=== PATIENT | female | born 1995 | race Caucasian/White ===

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

== ENCOUNTER → 2017-01-25 | Outpatient (CLI) | payer BC ==
[2017-01-25 12:13] LABS: HEMATOCRIT 43.1 % (37-47); MEAN CELL VOLUME 91.9 fL (80-100); MEAN CORPUSCULAR HEMOGLOBIN 32.4 pg (25-34); MEAN CORPUSCULAR HGB CONC 35.3 g/dl (32-36); MEAN PLATELET VOLUME 9.7 fL (7.4-10.4); PLATELET COUNT 231 K/uL (130-400); RED BLOOD COUNT 4.69 M/uL (4.2-5.4); WHITE BLOOD COUNT 6.22 K/uL (4.8-10.8)
[2017-01-25 12:22] LABS: BLOOD UREA NITROGEN 11 mg/dl (7-18); BUN/CREATININE RATIO 16.2 (10-20); CARBON DIOXIDE 24 mmol/L (21-32); CHLORIDE 108 mmol/L (98-107); CREATININE 0.68 mg/dl (0.60-1.20); GLUCOSE 91 mg/dl (70-99); POTASSIUM 3.9 mmol/L (3.5-5.1); SODIUM 140 mmol/L (136-145)
== END | disposition home or self-care (01) ==
LOC: C.LAB1850 10:31
PROVIDERS: ATTEND Physician Assistant
DX: R00.0 Tachycardia, unspecified (principal); R42 Dizziness and giddiness

== ENCOUNTER 2023-08-04 14:58 | Inpatient (IN) ==
[2023-08-04] MEDS ORDERED: OXYTOCIN 30 UNITS/NSS 30 UNITS/500 ML BAG IV PRN (21:14)
[2023-08-04] MEDS ORDERED: LIDOCAINE 1% LOCAL 20 ML VIAL INFIL PRN (21:14)
[2023-08-04 21:57] LABS: Hematocrit (blood only) 39.6 % (37.0-47.0); Hemoglobin 13.9 g/dl (12.0-16.0); Mean Corpuscular Hemoglobin 32.8 pg (25.0-34.0); Mean Corpuscular Hgb Conc 35.1 g/dL (32.0-36.0); Mean Corpuscular Volume 93.4 fL (80.0-100.0); Mean Platelet Volume 10.7 fL (9.4-12.4); Platelet Count 175 K/uL (130-400); RDW Coefficient of Variation 13.1 % (11.5-14.5); RDW Standard Deviation 44.4 fL (36.4-46.3); Red Blood Count 4.24 M/uL (4.20-5.40); White Blood Count 10.67 K/ul (4.8-10.8)
[2023-08-04] MEDS: OXYTOCIN 30 UNITS/NSS 30 UNITS/500 ML BAG IV PRN (22:00)
[2023-08-04] MEDS: LACTATED RINGER'S 1,000 ML IV PRN (22:00)
--- NOTE | 2023-08-04 22:00 | History & Physical Report ---
Date of Service August 04, 2023 Assessment & Plan (1) Supervision of normal first : Plan: Admit to L&D. EFM/toco. Labs. Start pitocin, ok for epidural when she desires. Admission and Anticipated Discharge Date Admission Date: August 04, 2023 History of Present Illness Chief Complaint: IOL Primary Care Provider: Arun Cain, DO 28yo @ 40 5/7, IOL for postdates. Allergies Allergy/AdvReac Type Severity Reaction Status Date / Time No Known Allergies Allergy Unknown Verified 08/04/23 20:28 Home Medications Medication Instructions Recorded Confirmed Type vhg-xolx-tsffg acid 1 dose PO DAILY 12/14/22 08/04/23 History breast pump #1 ea 04/09/23 08/03/23 Rx ondansetron 4 mg disintegrating 4 mg PO Q6H PRN nausea and 06/02/23 08/04/23 Rx tablet vomiting #30 tabs Patient History Medical History Varicella vaccine Migraine Surgical History S/P tonsillectomy S/P wisdom tooth extraction Family History (Updated 12/14/22 @ 15:09 by Nayeli Paul, EBONI) Grandmother (Paternal) Diabetes Mother Endometriosis Denies family history of Ovarian cancer Prostate cancer Breast cancer Colorectal cancer Social History Smoking Status: Never smoker Second Hand Exposure: No; Do You Dip or Chew Tobacco: No; Hx Alcohol Use: No Hx Substance Use: No Preferred Language: Croatian Communication Ability: Effective Supervisor Laboratory Animal Facility Required: No Beliefs That Will Affect Care: None marital status: marital status details: Andrea Miguel ( [phone] Current Living Situation: Spouse Current Living Situation Comment: lives with and cats, litter changing current occupational status: employed current occupation: [employer] Other Information That Helps Us Care for You: No Feels Safe at Home: Yes Safety Concerns: Feels Safe At This Time Assistive Devices: Glasses Review of Systems All systems reviewed & are unremarkable except as noted in HPI & below Physical Exam Physical Exam: FHT Cat 1 [place] no reg ctx SVE 3-4/90/-1 Constitutional: WD/WN, vitals as above Respiratory: normal respiratory effort, lungs clear to auscultation no respiratory distress Cardiovascular: Rate/Rhythm: regular rate and regular rhythm Gastrointestinal (Abdomen): Inspection/Auscultation: abdomen normal to inspection Percussion/Palpation: abdomen soft; abdomen nontender Gravid. No s/s chorio or abruption. Skin: no rashes, warm and dry Psychiatric: A+Ox3, euthymic affect Results & Data Vital Signs (Past 12 Hours) Vital Signs Temp Pulse Resp BP 08/04/23 20:30 37.1 C 82 18 131/84 08/04/23 20:20 18 08/04/23 20:20 37.1 C 18 08/04/23 20:19 82 131/84 Coding Level of Care Code None Diagnoses Supervision of normal first Z34.00
[2023-08-05] MEDS ORDERED: fentaNYL citrate PF 100 MCG/2 ML VIAL ONE (04:20)
[2023-08-05] MEDS: LIDOCAINE 2%/EPINEPHRINE 1:200,000 20 ML PF ONE (05:00)
[2023-08-05] MEDS: SODIUM CHLORIDE 0.9% PF INJ 10 ML VIAL ONE (05:00)
[2023-08-05] MEDS: BUPIVACAINE 0.25% PF 30 ML VIAL ONE (05:00)
[2023-08-05] MEDS: fentANYL 2 MCG/ML BUPIVacaine 0.125%-NSS 100ML BAG ONE (05:01)
[2023-08-05] MEDS ORDERED: NALOXONE HCL 0.4 MG/1 ML VIAL/CARP IV PRN (05:07)
[2023-08-05] MEDS ORDERED: NALOXONE HCL 1 MG in SODIUM CHLORIDE 0.9% 1,000 ML IV PRN (05:07)
[2023-08-05] MEDS ORDERED: ROPIVACAINE 0.5% PF 5 MG/ML 20 ML VIAL EPI PRN (05:07)
[2023-08-05] MEDS ORDERED: LIDOCAINE 2%/EPINEPHRINE 1:200,000 20 ML PF EPI STA (05:07)
[2023-08-05] MEDS ORDERED: NALBUPHINE HCL 5 MG in SYRINGE 0 ML IV PRN (05:07)
[2023-08-05] MEDS ORDERED: SODIUM CHLORIDE 0.9% PF INJ 10 ML VIAL EPI STA (05:07)
[2023-08-05] MEDS ORDERED: BUPIVACAINE 0.25% PF 30 ML VIAL EPI STA (05:07)
[2023-08-05] MEDS ORDERED: SODIUM CHLORIDE 0.9% PF INJ 10 ML VIAL EPI PRN (05:07)
[2023-08-05] MEDS ORDERED: ONDANSETRON INJ 2 MG/ML 2 ML VIAL IV PRN (05:07)
[2023-08-05] MEDS ORDERED: fentaNYL citrate PF 100 MCG/2 ML VIAL EPI PRN (05:07)
[2023-08-05] MEDS ORDERED: ePHEDrine sulfate 50 MG/ML AMP IV PRN (05:07)
[2023-08-05] MEDS ORDERED: PROMETHAZINE HCL 6.25 MG in SODIUM CHLORIDE 0.9% 50 ML IV PRN (05:07)
[2023-08-05] MEDS ORDERED: BUPIVACAINE 0.25% PF 30 ML VIAL EPI PRN (05:07)
[2023-08-05] MEDS ORDERED: diphenhydrAMINE 50 MG/ML VIAL IV PRN (05:07)
[2023-08-05] MEDS ORDERED: fentaNYL citrate PF 100 MCG/2 ML VIAL EPI STA (05:07)
[2023-08-05] MEDS ORDERED: LIDOCAINE 2% MPF LOCAL 5 ML VIAL EPI PRN (05:07)
--- NOTE | 2023-08-05 05:07 | Anesthesiology Consultation ---
Date of Service August 05, 2023 Assessment & Plan Chart Review Chart Review: Patient NOT seen in Pre Admission Testing and Acceptable Risk for Labor Epidural Consults Requested none ASA ASA2 Proposed Anesthesia Anesthesia Type: Labor Epidural Risk / Benefits Reviewed With: PT / POA / Parent / Guardian, Accepts Plan and Informed Consent Obtained History Height/Weight Height: 5 ft 7 in Weight: 97.976 kg Allergies Allergy/AdvReac Type Severity Reaction Status Date / Time No Known Allergies Allergy Unknown Verified 08/04/23 20:28 Medications Home Medications Medication Instructions Recorded Confirmed Last Taken rmj-arld-lfbom acid 1 dose PO DAILY 12/14/22 08/04/23 08/04/23 12:00 breast pump #1 ea 04/09/23 08/03/23 Unknown ondansetron 4 mg disintegrating 4 mg PO Q6H PRN nausea and 06/02/23 08/04/23 08/04/23 16:00 tablet vomiting #30 tabs Active Medications Generic Name Dose Route Start Last Admin Trade Name Freq PRN Reason Stop Dose Admin Oxytocin 30 units in 500 mls @ 11 mls/hr 08/04/23 21:14 08/05/23 02:29 Pitocin 30 Units/Nss IV 08/06/23 21:13 0.78 units/hr .Q24H PRN 13 mls/hr Labor Induction/Augmentation Titration Protocol 0.66 UNITS/HR Lactated Ringer's 1,000 mls @ 125 mls/hr 08/04/23 21:14 08/05/23 04:45 Lr IV 08/06/23 21:13 125 mls/hr .Q8H PRN Infusion L&D Protocol Protocol Past Medical History Medical History Varicella vaccine Migraine Exercise / Class Metabolic Activity II 4-5 Yardwork/Stairs/Walk up hill Past Family History Family History (Updated 12/14/22 @ 15:09 by Nayeli Paul RN) Grandmother (Paternal) Diabetes Mother Endometriosis Denies family history of Ovarian cancer Prostate cancer Breast cancer Colorectal cancer Past Surgical History Surgical History S/P tonsillectomy S/P wisdom tooth extraction Past Anesthesia History No Hx of Anesthesia Complications and No Family Hx of Anesthesia Complications History of PONV No Hx of PONV and No Hx of Motion Sickness Social History Smoking Status: Never smoker Do You Dip or Chew Tobacco: No Hx Alcohol Use: No Hx Substance Use: No substance use type: does not use Physical Exam Vital Signs Last Vital Signs Temp 36.7 C 08/05/23 02:29 Pulse 75 08/05/23 05:05 Resp 18 08/05/23 02:29 BP 108/74 08/05/23 05:05 Pulse Ox 97 08/05/23 05:03 ENMT Mouth: no dentition abnormality Thyromental Distance: > or= 3.5 Finger Breadths Mallampati Class: II Neck normal visual inspection Respiratory normal respiratory effort Auscultation: lungs clear to auscultation bilaterally Cardiovascular Rate/Rhythm: regular rate and regular rhythm Psychiatric Orientation: alert Testing Laboratory Results 08/04/23 21:35
[2023-08-05] MEDS: ePHEDrine sulfate 50 MG/ML AMP ONE (06:39)
--- NOTE | 2023-08-05 08:53 | Labor Progress Brief Note ---
Date of Service August 05, 2023 Subjective feeling pressure Assessment & Plan (1) Encounter for induction of labor: Plan good cx change. arom, clear. anticip 2nd stage soon. Admission and Anticipated Discharge Date Admission Date: August 04, 2023 Physical Exam Constitutional: WD/WN, vitals as above Genitourinary: Manual OB Exam: + cervical dilation (lip), + cervical effacement 100% and + station + 1 Results & Data Vital Signs (Past 12 Hours) Vital Signs Temp Pulse Resp BP Pulse Ox 08/05/23 08:43 80 98 08/05/23 08:38 88 94 08/05/23 08:33 81 96 08/05/23 08:28 72 97 08/05/23 08:25 88 115/71 08/05/23 08:23 77 98 08/05/23 08:18 74 98 08/05/23 08:13 76 98 08/05/23 08:09 81 117/78 08/05/23 08:08 81 98 08/05/23 08:03 77 97 08/05/23 08:00 16 08/05/23 08:00 16 08/05/23 07:58 76 96 08/05/23 07:55 71 121/78 08/05/23 07:53 79 96 08/05/23 07:48 80 97 08/05/23 07:43 74 98 08/05/23 07:41 80 112/90 08/05/23 07:38 76 97 08/05/23 07:33 74 98 08/05/23 07:30 16 08/05/23 07:30 16 08/05/23 07:28 76 97 08/05/23 07:25 77 116/79 08/05/23 07:23 86 98 08/05/23 07:18 73 96 08/05/23 07:15 98.8 F 18 08/05/23 07:13 78 98 08/05/23 07:10 94 H 120/82 08/05/23 07:08 84 98 08/05/23 07:03 105 H 98 08/05/23 07:00 18 08/05/23 07:00 18 08/05/23 06:58 97 H 98 08/05/23 06:55 123 H 113/81 08/05/23 06:53 93 H 98 08/05/23 06:48 96 H 97 08/05/23 06:43 105 H 97 08/05/23 06:40 106 H 115/77 08/05/23 06:38 90 98 08/05/23 06:33 83 95 08/05/23 06:30 16 08/05/23 06:30 16 08/05/23 06:28 81 94 08/05/23 06:24 81 109/66 08/05/23 06:23 79 96 08/05/23 06:18 86 97 08/05/23 06:13 80 95 08/05/23 06:09 82 107/64 08/05/23 06:08 83 95 08/05/23 06:03 81 96 08/05/23 05:58 76 96 08/05/23 05:54 75 106/68 08/05/23 05:53 74 97 08/05/23 05:48 77 96 08/05/23 05:43 78 98 08/05/23 05:42 83 108/70 08/05/23 05:38 85 99 08/05/23 05:33 93 H 99 08/05/23 05:28 77 98 08/05/23 05:24 77 100/65 08/05/23 05:23 77 98 08/05/23 05:20 18 08/05/23 05:20 98.2 F 18 08/05/23 05:19 86 104/64 08/05/23 05:18 84 98 08/05/23 05:15 18 08/05/23 05:15 18 08/05/23 05:13 79 98 08/05/23 05:12 86 110/78 08/05/23 05:08 82 98 08/05/23 05:07 83 115/79 08/05/23 05:05 75 108/74 08/05/23 05:03 73 111/72 97 08/05/23 05:01 85 117/74 08/05/23 04:58 99 08/05/23 04:58 77 08/05/23 04:58 74 120/77 08/05/23 04:53 106 H 99 08/05/23 04:48 90 98 08/05/23 04:43 89 97 08/05/23 03:59 68 135/84 08/05/23 02:29 98.1 F 70 18 107/68 08/05/23 01:26 67 110/62 08/05/23 00:31 98.2 F 68 18 115/79 08/04/23 23:34 67 08/04/23 23:34 113/70 08/04/23 23:02 18 08/04/23 23:02 98.4 F 18 08/04/23 22:33 73 08/04/23 22:33 102/64 Coding Level of Care Code None Diagnoses Encounter for induction of labor Z34.90
[2023-08-05] MEDS ORDERED: NURSING L&D Epidural Breakthrough Pain Update ONE (09:01)
[2023-08-05] MEDS: fentANYL 2 MCG/ML BUPIVacaine 0.125%-NSS 100ML BAG EPI PRN (10:02)
--- NOTE | 2023-08-05 11:08 | Delivery Summary ---
Vaginal Delivery Summary Date of Service August 05, 2023 Vaginal Delivery Summary and 3rd Degree LAC (partial) The patient dilated to complete and pushed to deliver a viable male infant Apgars 8 and 9 via over partial 3rd degree perineal laceration. Mouth and nose bulb suctioned at perineum. Shoulders and body delivered with ease. Infant was vigorous and crying at . Cord clamped at 30 seconds of life and infant to maternal abdomen where the cord was then doubly clamped and cut. Placenta delivered spontaneously and intact, three-vessel cord. Hemostasis achieved with dilute pitocin and uterine massage and drainage of the bladder for approximately 200 cc under sterile conditions. Laceration repaired in layers with 2-0 and 3-0 vicryl. Rectal neg for sutures. Cervix and sulci intact. QBL 622 cc. Mother and baby stable in recovery. [facility] Vaginal Delivery Charge Delivery Type Details: and 3rd Degree LAC (partial)
[2023-08-05] MEDS ORDERED: DIPHTHER/TETAN/PERTUS Vaccine (Tdap, Adol/Adult) 0.5mL IM ONE (11:40)
[2023-08-05] MEDS ORDERED: ACETAMINOPHEN 325 MG TAB PO PRN (11:40)
[2023-08-05] MEDS ORDERED: bisacodyL 10 MG SUPP PR PRN (11:40)
[2023-08-05] MEDS ORDERED: OXYTOCIN 30 UNITS/NSS 30 UNITS/500 ML BAG IV PRN (11:40)
[2023-08-05] MEDS ORDERED: HYDROCORTISONE ACETATE 25 MG SUPP PR PRN (11:40)
--- NOTE | 2023-08-05 12:09 | Anesthesia Procedure Note ---
Date of Service August 05, 2023 Anesthesia Post Epidural Note Vital Signs Vital Signs: Temp Pulse Resp BP Pulse Ox 98.4 F 129 H 20 122/65 96 08/05/23 08:41 08/05/23 11:55 08/05/23 11:50 08/05/23 11:55 08/05/23 10:40 Pain Intensity Abdomen: Pain Intensity: 0 Back: Pain Intensity: 7 Notes Mental Status: alert / awake / arousable and participated in evaluation Nausea / Vomiting: adequately controlled Pain: adequately controlled Airway Patency, RR, SpO2: stable & adequate BP & HR: stable & adequate Hydration State: stable & adequate Neuraxial Anesthesia: was administered and sensory block is resolving Anesthetic Complications: no major complications apparent and Pt Satisfied with anesthetic care Epidural: Removed without complications and With tip intact
[2023-08-05] MEDS: IBUPROFEN 600 MG TAB PO PRN (12:11)
[2023-08-05] MEDS: BENZOCAINE 20% SPRY 85 APPLN/85 GM CAN EXT PRN (12:11)
[2023-08-05] MEDS: OXYTOCIN 20 UNITS in LACTATED RINGER'S 1,000 ML IV SCH (12:43)
[2023-08-05] MEDS: DOCUSATE SODIUM 100 MG CAP PO SCH (20:45)
--- NOTE | 2023-08-06 07:04 | Obstetrical Progress Note ---
Date of Service <César Scott DO - Last Filed: 08/06/23 07:48> August 06, 2023 Assessment & Plan <César Scott DO - Last Filed: 08/06/23 07:48> (1) Encounter for assessment: Plan 28 y/o PPD#1: Eating well, voiding well, ambulating well Vitals reviewed, WNL Pain well controlled with Motrin Routine post care - OOB, ambulation, diet progression as tolerated Will have 6 week follow up with Dr. Gerber <Alivia Gerber MD, FACOG - Last Filed: 08/06/23 07:51> (1) Encounter for assessment: Subjective <César Scott DO - Last Filed: 08/06/23 07:48> Ambulation: ambulating normally Voiding: no voiding problems Diet Tolerance:: regular diet Lochia:: Moderate Feeding Type:: breast feeding pain well controlled with Motrin Review of Systems -Denies fever or chills -Denies dyspnea, chest pain, or palpitations -Denies dysuria -Denies headache or changes in vision Physical Exam <César Scott DO - Last Filed: 08/06/23 07:48> General: Alert and oriented. No acute distress Cardiac: Regular rate and rhythm, no murmurs appreciated Respiratory: Lungs clear to auscultation bilaterally, No increased work of breathing Abdominal: Soft, non-tender, non-distended. Bowel sounds present. Uterus: Uterine fundus firm, palpable below umbilicus Extremities: No lower extremity edema, calves non-tender bilaterally Results & Data <César Scott DO - Last Filed: 08/06/23 07:48> Vital Signs (Past 12 Hours) Vital Signs Temp Pulse Resp BP 08/06/23 03:45 36.8 C 80 16 112/77 08/06/23 00:50 36.8 C 77 18 117/80 08/05/23 19:25 36.6 C 80 18 110/69 Supervising Physician <Alivia Gerber MD, FACOG - Last Filed: 08/06/23 07:51> Co-Signing Physician Notes Resident Physician Supervision Note: I was present with Dr. Scott during the history and exam. I discussed the case with the resident and agree with the findings and plan as documented in the note. Any exceptions or clarifications are listed here: stable, routine care. discussed her laceration at her request. ff 2 down nt, ext nt calves. ppd#1 routine care. breast/rhpos/ri Documented By: Alivia Gerber MD, FACOG Resident Activity Tracking <César Scott, - Last Filed: 08/06/23 07:48> Resident Involvement: Resident Care Provided Care Provided: OB Delivery
[2023-08-06 07:05] LABS: Hematocrit (blood only) 33.4 % (37.0-47.0); Hemoglobin 11.5 g/dl (12.0-16.0)
[2023-08-06] MEDS: PRENATAL VITAMIN 1 TAB PO SCH (07:28)
[2023-08-06] MEDS: bisacodyL 5 MG TABEC PO SCH (21:41)
--- NOTE | 2023-08-07 06:47 | Obstetrical Progress Note ---
Date of Service <César Schaeffer DO - Last Filed: 08/07/23 07:01> August 07, 2023 Assessment & Plan <César Schaeffer DO - Last Filed: 08/07/23 07:01> (1) Encounter for assessment: Plan 28 y/o PPD#2: Eating well, voiding well, ambulating well Vitals reviewed, WNL Pain well controlled with Motrin Routine post care - OOB, ambulation, diet progression as tolerated Will have 6 week follow up with Dr. Gerber <Yuliya Estrella MD, FACOG - Last Filed: 08/07/23 07:03> (1) Encounter for assessment: Subjective <César Schaeffer - Last Filed: 08/07/23 07:01> Ambulation: ambulating normally Voiding: no voiding problems Diet Tolerance:: regular diet Lochia:: Moderate Feeding Type:: breast feeding pain well controlled with Motrin Review of Systems -Denies fever or chills -Denies dyspnea, chest pain, or palpitations -Denies dysuria -Denies headache or changes in vision Physical Exam <César Schaeffer - Last Filed: 08/07/23 07:01> General: Alert and oriented. No acute distress Cardiac: Regular rate and rhythm, no murmurs appreciated Respiratory: Lungs clear to auscultation bilaterally, No increased work of breathing Abdominal: Soft, non-tender, non-distended. Bowel sounds present. Uterus: Uterine fundus firm, palpable below umbilicus Extremities: No lower extremity edema, calves non-tender bilaterally Results & Data <César Schaeffer - Last Filed: 08/07/23 07:01> Vital Signs (Past 12 Hours) Vital Signs Temp Pulse Resp BP BP Pulse Ox O2 Del Method 08/06/23 23:06 36.7 C 82 16 111/71 97 Room Air 08/06/23 19:24 36.7 C 90 18 143/77 H 98 Room Air Supervising Physician <Yuliya Estrella MD, FACOG - Last Filed: 08/07/23 07:03> Co-Signing Physician Notes Resident Physician Supervision Note: I interviewed and examined the patient. Discussed with Dr. Schaeffer and agree with findings and plan as documented in the note. Any exceptions or clarifications are listed here: Doing well. Meeting milestones. Breast feeding without difficulty. Desires d/c. Instructions given. Documented By: Yuliya Estrella MD, FACOG Resident Activity Tracking <César Schaeffer DO - Last Filed: 08/07/23 07:01> Resident Involvement: Resident Care Provided Care Provided: OB Delivery
== END 2023-08-07 16:05 | disposition home or self-care (01) | DRG 768 ==
LOC: 4S1 20:09 → 4E2 08-05 15:21